=== PATIENT | female | born 1955 | race Caucasian/White ===

== ENCOUNTER → 2023-11-25 07:02 | Outpatient (REF) | payer MEDICARE, OTHER, SELFPAY | LOC: EMG 07:02 | PROVIDERS: ATTENDING PHYSICIAN Orthopaedic Surgery; FAMILY PHYSICIAN Internal Medicine | DX: R20.0 Anesthesia of skin (principal); M54.12 Radiculopathy, cervical region | CPT/HCPCS: 95886; 95909 ==

== ENCOUNTER → 2023-12-23 10:16 | Outpatient (REF) | payer MEDICARE, OTHER, SELFPAY | LOC: PAVMRI 10:16 | PROVIDERS: ATTENDING PHYSICIAN Orthopaedic Surgery; FAMILY PHYSICIAN Internal Medicine | DX: M54.2 Cervicalgia (principal) | CPT/HCPCS: 72141 ==

== ENCOUNTER → 2024-01-06 06:42 | Outpatient (REF) | payer MEDICARE, OTHER, SELFPAY | LOC: RAD 06:42 | PROVIDERS: ATTENDING PHYSICIAN Internal Medicine | DX: R94.5 Abnormal results of liver function studies (principal) | CPT/HCPCS: 76700 ==

== ENCOUNTER → 2024-07-03 14:47 | Outpatient (REF) | payer MEDICARE, OTHER, SELFPAY | LOC: RCS 14:47 | PROVIDERS: ATTENDING PHYSICIAN Internal Medicine Cardiovascular Disease; FAMILY PHYSICIAN Internal Medicine | DX: I77.89 Other specified disorders of arteries and arterioles (principal) | CPT/HCPCS: 93306 ==

== ENCOUNTER → 2025-06-25 09:23 | Outpatient (REF) | payer MEDICARE, OTHER, SELFPAY | LOC: RCS 09:23 | PROVIDERS: ATTENDING PHYSICIAN Internal Medicine Cardiovascular Disease; FAMILY PHYSICIAN Internal Medicine | DX: I51.7 Cardiomegaly (principal); I77.89 Other specified disorders of arteries and arterioles | CPT/HCPCS: 93306 ==

== ENCOUNTER → 2025-07-26 09:21 | Outpatient (REF) | payer MEDICARE, OTHER, SELFPAY | LOC: HWRAD 09:21 | PROVIDERS: ATTENDING PHYSICIAN Internal Medicine Cardiovascular Disease; FAMILY PHYSICIAN Internal Medicine | DX: I10 Essential (primary) hypertension (principal); E78.5 Hyperlipidemia, unspecified; Z82.49 Family history of ischemic heart disease and other diseases of the circulatory system | CPT/HCPCS: 75571 ==

== ENCOUNTER → 2025-08-25 08:36 | Outpatient (REF) | payer MEDICARE, OTHER, SELFPAY | LOC: PAVMRI 08:36 | PROVIDERS: ATTENDING PHYSICIAN Physical Medicine & Rehabilitation; FAMILY PHYSICIAN Internal Medicine | DX: M54.16 Radiculopathy, lumbar region (principal) | CPT/HCPCS: 72148 ==